=== PATIENT | female | born 1950 | race Two or more races ===

== ENCOUNTER 2018-12-11 11:50 | Emergency (ER) | payer MEDICARE, OTHER ==
[~2018-12-11] VITALS: Ht 165.1 cm; Wt 52.3 kg
[~2018-12-11 11:50] MED LIST: CARB200T6 PO
[2018-12-11] MEDS ORDERED: HYDROCODONE/ACETAMINOPHEN 5-325 MG TABLET PO ONE (12:45)
[2018-12-11 14:20] VITALS: BP 100/65
== END 2018-12-11 14:26 | disposition home or self-care (01) ==
LOC: EMS 11:51
DX: S52.571A Other intraarticular fracture of lower end of right radius, initial encounter for closed fracture (principal); S52.611A Displaced fracture of right ulna styloid process, initial encounter for closed fracture; W18.40XA Slipping, tripping and stumbling without falling, unspecified, initial encounter; Y93.01 Activity, walking, marching and hiking; Y92.89 Other specified places as the place of occurrence of the external cause; Y99.8 Other external cause status